=== PATIENT | male | born 1985 | race Hispanic/Latino ===

== ENCOUNTER 2018-09-07 03:49 | Emergency (ER) | payer BC ==
[2018-09-07 04:23] VITALS: O2SAT 95
[2018-09-07] MEDS ORDERED: Tetracaine 0.5% Ophth 2 ML BOTTLE ONE (04:29)
[2018-09-07] MEDS ORDERED: Fluorescein 1 mg Ophthalmic Strip ONE (04:30)
[2018-09-07] MEDS ORDERED: Polymyxin/Trimethoprim Ophth Soln OS STA (04:48)
--- NOTE | 2018-09-07 05:35 | ED PDOC ---
HPI: Eye Injury/Pain Time Seen by Provider: 09/07/18 04:23 Chief Complaint (Nursing): Eye Problem Chief Complaint (Provider): Eye Problem History Per: Patient History/Exam Limitations: no limitations Onset/Duration Of Symptoms: Days (x1) Associated Symptoms: Pain, FB Sensation Additional Complaint(s): 33 y/o male with no PMHx presents to the ED complaining of left eye pain with foreign body sensation, onset last night. Patient reports he wears hard contacts and is unable to get his left hard contact out of his eye since last night. Patient reports he has been having a lot of pain in his eyes. He states it is irritated and he is unable to open it. Past Medical History Reviewed: Historical Data, Nursing Documentation, Vital Signs Vital Signs: Last Vital Signs Temp 97.8 F 09/07/18 04:18 Pulse 84 09/07/18 04:18 Resp 19 09/07/18 04:18 BP 143/97 H 09/07/18 04:18 Pulse Ox 95 09/07/18 04:18 - Medical History PMH: No Chronic Diseases - Surgical History Surgical History: No Surg Hx - Family History Family History: States: Unknown Family Hx - Allergies Allergies/Adverse Reactions: Allergies Allergy/AdvReac Type Severity Reaction Status Date / Time Penicillins Allergy URTICARIA Verified 09/07/18 04:21 Review of Systems ROS Statement: Except As Marked, All Systems Reviewed And Found Negative Eyes: Positive for: Pain, Eyelid Inflammation, Other (foreign body sensation) Physical Exam - Reviewed Nursing Documentation Reviewed: Yes Vital Signs Reviewed: Yes - Physical Exam Appears: Positive for: Well, Non-toxic, No Acute Distress Head Exam: Positive for: ATRAUMATIC, NORMAL INSPECTION, NORMOCEPHALIC Skin: Positive for: Normal Color, Warm, DRY Eye Exam: Positive for: EOMI, PERRL, Conjunctival injection, Other (blepheritis; no contact seen, eyelids inverted without foreign body idenitified) Neck: Positive for: Normal, Painless ROM Extremity: Positive for: Normal ROM. Negative for: Pedal Edema, Deformity Neurologic/Psych: Positive for: Alert, Oriented. Negative for: Motor/Sensory Deficits - ECG O2 Sat by Pulse Oximetry: 95 (RA) Pulse Ox Interpretation: Normal Medical Decision Making Medical Decision Making: Time: 04:48 A/P: 33 y/o patient with foreign body sensation to eye. Eye washed and stained with fluorescent tetracaine. Patient had large uptake. Patient was given Polytrim. Patient states that he does not want to follow up with Dr. Portillo. He instead wants to follow up with [facility] and will be dr barone there by his girlfriend immediately after discharge. Scribe Attestation: Documented by Jeremy Deluca acting as a scribe for Lon Walsh MD. Provider Scribe Attestation: All medical record entries made by the Scribe were at my direction and personally dictated by me. I have reviewed the chart and agree that the record accurately reflects my personal performance of the history, physical exam, medical decision making, and the department course for this patient. I have also personally directed, reviewed, and agree with the discharge instructions and disposition. Disposition - Clinical Impression Clinical Impression: Foreign body in eye - Disposition Disposition: Routine/Home Disposition Time: 04:48 Condition: GOOD Instructions: Foreign Body in Eye Forms: [employer] (I[place]ic)
[2018-09-07 05:43] VITALS: BP 131/90; PULSE 88; RESP 18; TEMP 98
== END 2018-09-07 05:37 | disposition home or self-care (01) ==
LOC: H.ER 03:49
DX: Z88.0 Allergy status to penicillin (principal)